=== PATIENT | male | born 1965 | race Caucasian/White ===

== ENCOUNTER 2021-04-18 17:49 | Emergency (ER) | payer OTHER ==
[2021-04-18 19:23] LABS: BASOPHIL 0.4 % (0-2); EOSINOPHIL 1.1 % (0-5); HGB 16.1 g/dl (13.2-18.0); LYMPHOCYTE 33.8 % (15-48); MCH 29.7 pg (25.0-31.0); MCHC 32.9 g/dL (32.0-36.0); MCV 90.2 fL (78.0-100.0); MONOCYTE 10.1 % (0-12); MPV 8.7 fL (6.0-9.5); NEUTROPHIL 54.2 % (41-80); NRBC 0; PLT 321 K/uL (150-400); RBC 5.43 M/uL (4.70-6.00); RDW 13.2 % (11.5-14.0)
[2021-04-18 19:42] LABS: ALBUMIN 3.9 g/dL (3.4-5.0); BILIRUBIN - TOTAL 0.3 mg/dL (0.2-1.0); BUN/CREAT RATIO (CALC) 14.8 RATIO; CREATININE 1.08 mg/dL (0.67-1.17); POTASSIUM 4.4 mmol/L (3.5-5.1); TOTAL PROTEIN 7.9 g/dL (6.4-8.2)
== END 2021-04-18 20:40 | disposition home or self-care (01) ==
LOC: FER 17:49
PROVIDERS: Nurse Practitioner Family
DX: I10 Essential (primary) hypertension (principal); R07.89 Other chest pain; E78.5 Hyperlipidemia, unspecified; Z91.010 Allergy to peanuts; Z79.899 Other long term (current) drug therapy; Z79.82 Long term (current) use of aspirin
CPT/HCPCS: 36415; 71045; 80053; 84484; 85025; 93005